=== PATIENT | female | born 1955 | race African-American/Black ===

== ENCOUNTER 2019-02-18 19:59 | Inpatient (IN) ==
[2019-02-18 20:33] LABS: Basophils % 0.5 % (0.0-0.8); Eosinophils % 0.1 % (0.00-10.9); Hematocrit 44.7 VOL% (35.7-47.0); Hemoglobin 14.1 GM/DL (12.0-16.0); Immature Granulocytes % 0.4 %; Immature Granulocytes Absolute 0.03 #; Lymphocytes # 0.9 10*3/uL (1.4-4.0); Lymphocytes % 11.5 % (21.3-54.2); Mean Corpuscular HGB Conc 31.5 GM/DL (32-36); Mean Corpuscular Volume 77.5 FL (87-102); Mean Platelet Volume 10.9 FL (9.6-12.0); Monocytes % 2.6 % (1.7-12.7); Neutrophils % 84.9 % (38.7-73.9); Platelet Count 259 T/CUMM (130-400); Red Blood Count 5.77 MC/CUMM (3.8-5.5); Red Cell Distribution Width 16.6 % (9.3-17.3); White Blood Count 8.1 T/CUMM (4-12)
[2019-02-18 20:55] LABS: Alanine Aminotransferase 36 U/L (13-56); Albumin 4.5 G/DL (3.4-5.0); Alkaline Phosphatase 107 U/L (45-117); Aspartate Amino Transferase 31 U/L (0-37); Bilirubin,Total < 0.39 MG/DL (0.2-1.0); Blood Urea Nitrogen 25 MG/DL (7-18); Calcium 9.5 MG/DL (8.5-10.1); Estimated Glom Filtration Rate 55 ML/MIN; Glucose 193 MG/DL (74-106); Osmolality,Calculated 287.4 MOS/KG (273-304); Total Protein 9.2 G/DL (6.4-8.3)
[2019-02-18] MEDS ORDERED: HEPARIN 1,000 UNIT/1 ML VIAL IV STA (22:13)
[2019-02-18] MEDS ORDERED: TICAGRELOR 90 MG TABLET PO STA (22:13)
[2019-02-18] MEDS ORDERED: NITROGLYCERIN 2% OINT 1 INCH/GM PACK TOP STA (22:14)
[2019-02-18] MEDS ORDERED: NITROGLYCERIN 2% OINT 1 INCH/GM PACK TOP ONE (22:16)
[2019-02-18] MEDS ORDERED: TICAGRELOR 90 MG TABLET ONE (22:16)
[2019-02-18] MEDS ORDERED: HEPARIN 5,000 UNIT/1 ML VIAL ONE (22:17)
[2019-02-18] MEDS ORDERED: ONDANSETRON 4 MG/2 ML VIAL IV PRN (22:19)
[2019-02-18] MEDS ORDERED: MORPHINE 4 MG/1 ML VIAL IV STA ×2 (22:19→23:22)
[2019-02-18] MEDS ORDERED: ONDANSETRON 4 MG/2 ML VIAL IV STA (22:19)
[2019-02-18] MEDS ORDERED: MAGNESIUM SULF RIDER 4 GM in PREMIX 1 EACH IV PRN (22:19)
[2019-02-18] MEDS ORDERED: MAGNESIUM SULF RIDER 2 GM in PREMIX 1 EACH IV PRN (22:19)
[2019-02-18] MEDS ORDERED: NITROGLYCERIN DRIP 50 MG/250 ML BOTTLE IV SCH (22:30)
[2019-02-18] MEDS ORDERED: NITROGLYCERIN DRIP 50 MG/250 ML BOTTLE IV PRN (23:20)
[2019-02-18] MEDS: HEPARIN DRIP 25,000 UNITS/500 ML PREMIX IV SCH (23:40)
[2019-02-18] MEDS: DEXTROSE 5% NACL 0.9% 1,000 ML IV SCH (23:46)
[2019-02-19] MEDS ORDERED: HEPARIN 5,000 UNIT/1 ML VIAL IV ONE ×2 (03:22→22:23)
[2019-02-19] MEDS: MORPHINE 4 MG/1 ML VIAL IV PRN ×2 (06:00→13:06)
[2019-02-19] MEDS: NITROGLYCERIN DRIP 50 MG/250 ML BOTTLE IV PRN ×3 (06:08→16:36)
[2019-02-19] MEDS: carvediloL 3.125 MG TABLET PO SCH ×4 (08:48→23:36)
[2019-02-19] MEDS: DEXTROSE 5% NACL 0.9% 1,000 ML IV SCH (08:49)
[2019-02-19 10:27] LABS: Barbiturates Screen,Urine Negative (Negative); Benzodiazepines Screen,Urine Negative (Negative); Cannabinoid Screen,Urine Negative (Negative); Opiate Screen,Urine Positive (Negative); Phencyclidine Screen,Urine Negative (Negative)
[2019-02-19 10:48] LABS: Albumin 3.6 G/DL (3.4-5.0); Bilirubin,Total 0.4 MG/DL (0.2-1.0); Calcium 9.5 MG/DL (8.5-10.1); Osmolality,Calculated 285.4 MOS/KG (273-304); Risk Ratio 4.05; Total Protein 7.9 G/DL (6.4-8.3); VLDL CHOLESTEROL 11.2 MG/DL
[2019-02-19] MEDS ORDERED: POTASSIUM CHLORIDE 20 MEQ TABLET PO ONE (11:57)
[2019-02-19] MEDS ORDERED: POTASSIUM CHLORIDE RIDER 10 MEQ in PREMIX 1 EACH IV PRN ×2 (12:00→14:04)
[2019-02-19] MEDS ORDERED: GLUCAGON 1 MG VIAL IM PRN (12:39)
[2019-02-19] MEDS ORDERED: DEXTROSE 10% 250 ML BAG IV PRN (12:39)
[2019-02-19] MEDS ORDERED: DIAZEPAM 5 MG TABLET PO ONE (14:04)
[2019-02-19] MEDS ORDERED: MAGNESIUM SULF RIDER 2 GM in PREMIX 1 EACH IV PRN (14:04)
[2019-02-19] MEDS ORDERED: diphenhydrAMINE CAP 25 MG CAPSULE PO ONE (14:04)
[2019-02-19] MEDS: ASPIRIN CHEW 81 MG TABLET PO SCH (15:15)
[2019-02-19] MEDS: PANTOPRAZOLE 40 MG TABLET PO SCH (15:15)
[2019-02-19] MEDS: INSULIN LISPRO 100 UNIT/ML SUBCUT SCH ×2 (15:34→21:07)
[2019-02-19] MEDS ORDERED: ROSUVASTATIN 10 MG TABLET PO SCH (21:00)
[2019-02-20] MEDS: HEPARIN DRIP 25,000 UNITS/500 ML PREMIX IV SCH (00:50)
[2019-02-20 02:28] LABS: Basophils % 0.4 % (0.0-0.8); Hematocrit 35.5 VOL% (35.7-47.0); Hemoglobin 11.3 GM/DL (12.0-16.0); Immature Granulocytes % 0.1 %; Immature Granulocytes Absolute 0.01 #; Lymphocytes # 1.3 10*3/uL (1.4-4.0); Lymphocytes % 15.9 % (21.3-54.2); Mean Corpuscular HGB Conc 31.8 GM/DL (32-36); Mean Corpuscular Volume 76.2 FL (87-102); Mean Platelet Volume 11.5 FL (9.6-12.0); Monocytes % 12.1 % (1.7-12.7); Neutrophils % 71.5 % (38.7-73.9); Platelet Count 245 T/CUMM (130-400); Red Blood Count 4.66 MC/CUMM (3.8-5.5); Red Cell Distribution Width 15.8 % (9.3-17.3); White Blood Count 8.2 T/CUMM (4-12)
[2019-02-20 02:55] LABS: Albumin 3.2 G/DL (3.4-5.0); Bilirubin,Total 0.6 MG/DL (0.2-1.0); Calcium 9.1 MG/DL (8.5-10.1); Osmolality,Calculated 281.3 MOS/KG (273-304); Total Protein 7.3 G/DL (6.4-8.3)
[2019-02-20 03:09] LABS: CKMB % 3.7 %
[2019-02-20 03:11] LABS: Troponin I 97.6 NG/ML (0.00-0.045)
[2019-02-20] MEDS: carvediloL 3.125 MG TABLET PO SCH ×3 (06:10→17:25)
[2019-02-20] MEDS: SODIUM CHLORIDE 0.9% 1,000 ML IV SCH ×2 (08:30→17:28)
[2019-02-20] MEDS: INSULIN LISPRO 100 UNIT/ML SUBCUT SCH ×4 (08:35→22:02)
[2019-02-20] MEDS ORDERED: diphenhydrAMINE CAP 25 MG CAPSULE PO ONE ×2 (08:44→14:00)
[2019-02-20] MEDS: ASPIRIN CHEW 81 MG TABLET PO SCH (09:28)
[2019-02-20] MEDS: FAMOTIDINE 20 MG/2 ML VIAL IV SCH ×2 (09:29→22:08)
[2019-02-20] MEDS: PANTOPRAZOLE 40 MG TABLET PO SCH (09:29)
[2019-02-20] MEDS: methylPREDNISolone SOD SUC 125 MG/2 ML VIAL IV SCH ×3 (09:30→22:06)
[2019-02-20] MEDS ORDERED: FAMOTIDINE 20 MG/2 ML VIAL IV ONE (13:44)
[2019-02-20] MEDS ORDERED: LIDOCAINE 1% 20 ML VIAL ONE (13:55)
[2019-02-20] MEDS ORDERED: DIAZEPAM 5 MG TABLET PO ONE (14:00)
[2019-02-20] MEDS ORDERED: fentaNYL 100 MCG/2 ML VIAL ONE (14:05)
[2019-02-20] MEDS ORDERED: MIDAZOLAM 2 MG/2 ML VIAL ONE (14:05)
[2019-02-20] MEDS ORDERED: ENOXAPARIN 30 MG/0.3 ML SYRINGE SUBCUT SCH (21:00)
[2019-02-20] MEDS: ROSUVASTATIN 20 MG TABLET PO SCH (22:03)
[2019-02-20] MEDS: FAMOTIDINE 20 MG TABLET PO SCH (22:14)
[2019-02-21] MEDS: carvediloL 3.125 MG TABLET PO SCH ×4 (00:15→17:07)
[2019-02-21] MEDS: methylPREDNISolone SOD SUC 125 MG/2 ML VIAL IV SCH ×2 (04:10→08:35)
[2019-02-21 04:45] LABS: Basophils % 0.1 % (0.0-0.8); Hematocrit 38.8 VOL% (35.7-47.0); Hemoglobin 11.7 GM/DL (12.0-16.0); Immature Granulocytes % 0.5 %; Immature Granulocytes Absolute 0.04 #; Lymphocytes # 0.7 10*3/uL (1.4-4.0); Lymphocytes % 8.8 % (21.3-54.2); Mean Corpuscular HGB Conc 30.2 GM/DL (32-36); Mean Corpuscular Volume 78.9 FL (87-102); Monocytes % 2.5 % (1.7-12.7); Neutrophils % 88.1 % (38.7-73.9); Platelet Count 221 T/CUMM (130-400); Red Blood Count 4.92 MC/CUMM (3.8-5.5); Red Cell Distribution Width 16.4 % (9.3-17.3); White Blood Count 8.4 T/CUMM (4-12)
[2019-02-21 05:18] LABS: Calcium 9.4 MG/DL (8.5-10.1); Osmolality,Calculated 292.7 MOS/KG (273-304)
[2019-02-21] MEDS: ASPIRIN CHEW 81 MG TABLET PO SCH (08:35)
[2019-02-21] MEDS: PANTOPRAZOLE 40 MG TABLET PO SCH (08:35)
[2019-02-21] MEDS: FAMOTIDINE 20 MG TABLET PO SCH ×2 (08:35→09:07)
[2019-02-21] MEDS: ENOXAPARIN 80 MG/0.8 ML SYRINGE SUBCUT SCH ×2 (08:35→21:49)
[2019-02-21] MEDS: NITROGLYCERIN 2% OINT 1 INCH/GM PACK TOP SCH ×3 (08:36→17:14)
[2019-02-21] MEDS: INSULIN LISPRO 100 UNIT/ML SUBCUT SCH ×4 (09:14→21:51)
[2019-02-21] MEDS: FAMOTIDINE 20 MG/2 ML VIAL IV SCH (09:14)
[2019-02-21] MEDS: ASCORBIC ACID 500 MG TABLET PO SCH ×2 (13:52→21:50)
[2019-02-21] MEDS: ROSUVASTATIN 20 MG TABLET PO SCH (21:50)
[2019-02-22] MEDS: carvediloL 3.125 MG TABLET PO SCH ×4 (02:20→22:43)
[2019-02-22] MEDS: NITROGLYCERIN 2% OINT 1 INCH/GM PACK TOP SCH ×5 (02:20→23:21)
[2019-02-22 05:03] LABS: Basophils % 0.2 % (0.0-0.8); Hematocrit 34.8 VOL% (35.7-47.0); Hemoglobin 10.8 GM/DL (12.0-16.0); Immature Granulocytes % 0.4 %; Immature Granulocytes Absolute 0.05 #; Lymphocytes # 0.9 10*3/uL (1.4-4.0); Mean Corpuscular Volume 77.7 FL (87-102); Mean Platelet Volume 12.3 FL (9.6-12.0); Monocytes % 6.2 % (1.7-12.7); Neutrophils % 86.2 % (38.7-73.9); Platelet Count 208 T/CUMM (130-400); Red Blood Count 4.48 MC/CUMM (3.8-5.5); White Blood Count 12.1 T/CUMM (4-12)
[2019-02-22 05:19] LABS: Calcium 8.8 MG/DL (8.5-10.1); Osmolality,Calculated 296.1 MOS/KG (273-304)
[2019-02-22] MEDS: SODIUM CHLORIDE 0.9% 1,000 ML IV SCH (07:27)
[2019-02-22] MEDS: ENOXAPARIN 80 MG/0.8 ML SYRINGE SUBCUT SCH (09:34)
[2019-02-22] MEDS: INSULIN LISPRO 100 UNIT/ML SUBCUT SCH ×4 (09:34→23:20)
[2019-02-22] MEDS: ASPIRIN CHEW 81 MG TABLET PO SCH (09:36)
[2019-02-22] MEDS: PANTOPRAZOLE 40 MG TABLET PO SCH (09:37)
[2019-02-22] MEDS: ASCORBIC ACID 500 MG TABLET PO SCH ×2 (09:37→22:43)
[2019-02-22] MEDS: CHLORHEXIDINE 4% SOLN 118 ML BOTTLE TOP SCH ×3 (09:38→22:44)
[2019-02-22] MEDS: CHLORHEXIDINE 0.12% ORAL RINSE 60 ML BOTTLE SWISH/SPIT SCH ×2 (09:38→22:47)
[2019-02-22] MEDS: ROSUVASTATIN 20 MG TABLET PO SCH (22:43)
[2019-02-23] MEDS ORDERED: PAPAVERINE 60 MG/2 ML VIAL ONE (04:22)
[2019-02-23] MEDS ORDERED: TISSUE ADHESIVE 1 EACH APPLICATOR TOP ONE (04:22)
[2019-02-23] MEDS ORDERED: VANCOMYCIN 500 MG VIAL ONE (04:23)
[2019-02-23] MEDS ORDERED: VANCOMYCIN 1,000 MG VIAL ONE (04:23)
[2019-02-23 04:52] LABS: Eosinophils % 0.1 % (0.00-10.9); Hematocrit 33.1 VOL% (35.7-47.0); Hemoglobin 10.3 GM/DL (12.0-16.0); Immature Granulocytes % 0.3 %; Immature Granulocytes Absolute 0.02 #; Lymphocytes # 1.6 10*3/uL (1.4-4.0); Lymphocytes % 20.3 % (21.3-54.2); Mean Corpuscular HGB Conc 31.1 GM/DL (32-36); Mean Corpuscular Volume 77.2 FL (87-102); Mean Platelet Volume 11.7 FL (9.6-12.0); Neutrophils % 69.3 % (38.7-73.9); Platelet Count 209 T/CUMM (130-400); Red Blood Count 4.29 MC/CUMM (3.8-5.5); Red Cell Distribution Width 16.2 % (9.3-17.3); White Blood Count 7.9 T/CUMM (4-12)
[2019-02-23 05:08] LABS: Calcium 8.7 MG/DL (8.5-10.1); Osmolality,Calculated 301.7 MOS/KG (273-304)
[2019-02-23] MEDS: NITROGLYCERIN 2% OINT 1 INCH/GM PACK TOP SCH (05:32)
[2019-02-23] MEDS: carvediloL 3.125 MG TABLET PO SCH ×2 (05:44→10:00)
[2019-02-23] MEDS ORDERED: CEFUROXIME INJ 1,500 MG in SYRINGE 1 EACH IV ONE (06:56)
[2019-02-23 08:21] LABS: ABG Base Excess -0.4 MMOL/L (-2.5-2.5); ABG HCO3 24.2 MMOL/L (20-26); ABG Oxygen Saturation 99.4 % (95-100); ABG PCO2 34.8 MM HG (35-48); ABG PH 7.436 (7.35-7.45); ABG TCO2 21.2 MMOL/L (23-27); Glucose Heart Surgery 102 MG/DL (74-106); Hematocrit Heart Surgery 31.4 PERCENT (37-47); Hemoglobin Heart Surgery 10.2 G/DL (12.0-16.0); Ionized Calcium Arterial 1.15 MMOL/L (1.21-1.46); PCO2 Patient Temp Arterial 34.8 MMHG; PH Patient Temp Arterial 7.436; Patient Temperature 37 CELCIUS; Potassium Heart/CVR 3.4 MMOL/L (3.5-5.1); Sodium Heart/CVR 142 MMOL/L (135-145)
[2019-02-23 08:51] LABS: Apearance,Urine CLEAR (Clear); Bilirubin,Urine Negative (Negative); Blood, Urine Negative (Negative); Glucose,Urine (UA) Negative (Negative); Ketones,Urine Negative (Negative); Nitrite,Urine Negative (Negative); Protein,Urine Negative; RBC,Urine <1 /HPF (0-4); Squamous Epithelial Cell,Urine Occasional /HPF (0-10); Urine Color Straw (Yellow); Urine Specific Gravity 1.008 (1.001-1.035); Urine Urobilinogen < 2.0 EU/DL (0.2-1.0); WBC,Urine <1 /HPF (0-6)
[2019-02-23 09:39] LABS: Hemoglobin Heart Surgery 7.8 G/DL (12.0-16.0); PH Patient Temp Venous 7.541; Potassium Heart/CVR 3.5 MMOL/L (3.5-5.1); VBG Base Excess 0.3 MEQ/L (0-4); VBG Oxygen Saturation 83.8 %; VBG PCO2 29.5 MMHG (41-51); VBG PH 7.51
[2019-02-23] MEDS ORDERED: ALBUMIN 5% 12.5 GM/250 ML VIAL IV ONE ×2 (09:47)
[2019-02-23] MEDS ORDERED: NITROPRUSSIDE 50 MG/2 ML VIAL ONE (09:47)
[2019-02-23] MEDS ORDERED: SODIUM BICARBONATE 50 MEQ/50 ML VIAL IV ONE ×2 (09:47→10:36)
[2019-02-23] MEDS ORDERED: POTASSIUM CHLORIDE RIDER 100 ML IV ONE (09:47)
[2019-02-23] MEDS ORDERED: CALCIUM CHLORIDE 1,000 MG/10 ML SYRINGE IV ONE (09:47)
[2019-02-23] MEDS ORDERED: PHENYLEPHRINE DRIP 40 MG/250 ML PREMIX IV ONE (09:47)
[2019-02-23] MEDS: ASPIRIN CHEW 81 MG TABLET PO SCH (10:00)
[2019-02-23] MEDS: CHLORHEXIDINE 0.12% ORAL RINSE 60 ML BOTTLE SWISH/SPIT SCH ×2 (10:00→22:03)
[2019-02-23] MEDS: PANTOPRAZOLE 40 MG TABLET PO SCH (10:00)
[2019-02-23] MEDS: INSULIN LISPRO 100 UNIT/ML SUBCUT SCH ×2 (10:00→14:19)
[2019-02-23] MEDS: ASCORBIC ACID 500 MG TABLET PO SCH (10:00)
[2019-02-23] MEDS: SODIUM CHLORIDE 0.9% 1,000 ML IV SCH (10:00)
[2019-02-23 10:11] LABS: Hematocrit Heart Surgery 22.5 PERCENT (37-47); Hemoglobin Heart Surgery 7.2 G/DL (12.0-16.0); PCO2 Patient Temp Venous 31.4 MM HG; PH Patient Temp Venous 7.484; PO2 Patient Temp Venous 42.4 MM HG; VBG Base Excess 0.6 MEQ/L (0-4); VBG HCO3 24.8 MEQ/L (24-28); VBG Oxygen Saturation 87.5 %; VBG PCO2 36.3 MMHG (41-51); VBG PH 7.439; VBG PO2 51.9 MMHG (17-40)
[2019-02-23] MEDS ORDERED: THROMBIN TOPICAL (RECOMBINANT) 5,000 UNIT VIAL TOP ONE (10:25)
[2019-02-23] MEDS ORDERED: DEXTROSE 5% KCL 20 MEQ 20 MEQ/1,000 ML BAG IV ONE (10:36)
[2019-02-23] MEDS ORDERED: ALBUMIN 25% 25 GM/100 ML VIAL IV ONE (10:36)
[2019-02-23] MEDS ORDERED: LIDOCAINE 2% 5 ML VIAL ONE ×2 (10:36→12:14)
[2019-02-23] MEDS ORDERED: MANNITOL 100 GM/500 ML BAG IV ONE (10:36)
[2019-02-23] MEDS ORDERED: MAGNESIUM SULFATE 5 GM/10 ML VIAL IV ONE (10:36)
[2019-02-23] MEDS ORDERED: PROTAMINE SULFATE 250 MG/25 ML VIAL IV ONE (10:36)
[2019-02-23] MEDS ORDERED: methylPREDNISolone SOD SUC 1,000 MG/8 ML VIAL ONE (10:36)
[2019-02-23] MEDS ORDERED: FUROSEMIDE 20 MG/2 ML VIAL ONE (10:37)
[2019-02-23] MEDS ORDERED: PROTAMINE SULFATE 50 MG/5 ML VIAL IV ONE (10:37)
[2019-02-23] MEDS ORDERED: HEPARIN 10,000 UNIT/10 ML VIAL ONE (10:37)
[2019-02-23 10:43] LABS: ABG Base Excess -0.3 MMOL/L (-2.5-2.5); ABG HCO3 24.2 MMOL/L (20-26); ABG Oxygen Saturation 98.3 % (95-100); ABG PH 7.462 (7.35-7.45); ABG TCO2 20.6 MMOL/L (23-27); Glucose Heart Surgery 247 MG/DL (74-106); Hematocrit Heart Surgery 32.7 PERCENT (37-47); Hemoglobin Heart Surgery 10.6 G/DL (12.0-16.0); Ionized Calcium Arterial 1.82 MMOL/L (1.21-1.46); PH Patient Temp Arterial 7.462; Patient Temperature 37 CELCIUS; Potassium Heart/CVR 3.4 MMOL/L (3.5-5.1); Sodium Heart/CVR 136 MMOL/L (135-145)
[2019-02-23] MEDS ORDERED: CHLORHEXIDINE 4% SOLN 118 ML BOTTLE TOP PRN (11:38)
[2019-02-23] MEDS ORDERED: ALBUMIN 5% 12.5 GM in PREMIX 1 EACH IV PRN (11:38)
[2019-02-23] MEDS ORDERED: MORPHINE 10 MG/1 ML VIAL IV PRN (11:38)
[2019-02-23] MEDS ORDERED: MIDAZOLAM 2 MG/2 ML VIAL IV PRN (11:38)
[2019-02-23] MEDS ORDERED: INSULIN REGULAR 100 UNIT/ML IV PRN (11:38)
[2019-02-23] MEDS ORDERED: MAGNESIUM SULF RIDER 4 GM in PREMIX 1 EACH IV PRN (11:38)
[2019-02-23] MEDS ORDERED: ONDANSETRON 4 MG/2 ML VIAL IV PRN (11:38)
[2019-02-23] MEDS ORDERED: MAGNESIUM SULF RIDER 2 GM in PREMIX 1 EACH IV PRN (11:38)
[2019-02-23] MEDS ORDERED: DEXTROSE 10% 250 ML BAG IV PRN ×2 (11:38)
[2019-02-23] MEDS ORDERED: POTASSIUM CHLORIDE RIDER 10 MEQ in PREMIX 1 EACH IV PRN (11:38)
[2019-02-23] MEDS ORDERED: CALCIUM CHLORIDE 1,000 MG/10 ML SYRINGE IV PRN (11:38)
[2019-02-23] MEDS ORDERED: ACETAMINOPHEN 650 MG SUPP RECTAL PRN (11:38)
[2019-02-23] MEDS: SODIUM CHLORIDE 0.45% 1,000 ML IV SCH ×2 (11:50)
[2019-02-23] MEDS ORDERED: HEPARIN/NACL 0.9% 2 UNITS/ML 500 ML IV ONE (12:14)
[2019-02-23] MEDS ORDERED: CALCIUM CHLORIDE 1,000 MG/10 ML VIAL IV ONE (12:14)
[2019-02-23] MEDS ORDERED: SUFentanil 250 MCG/5 ML AMP ONE (12:14)
[2019-02-23] MEDS ORDERED: PHENYLEPHRINE DRIP 20 MG/250 ML PREMIX IV ONE (12:14)
[2019-02-23] MEDS ORDERED: EPINEPHrine 1 MG/ML VIAL ONE (12:14)
[2019-02-23] MEDS ORDERED: MIDAZOLAM 10 MG/2 ML VIAL ONE (12:15)
[2019-02-23] MEDS ORDERED: VECURONIUM 10 MG VIAL IV ONE (12:15)
[2019-02-23] MEDS ORDERED: ePHEDrine 50 MG/ML AMP ONE (12:15)
[2019-02-23] MEDS ORDERED: PHENYLEPHRINE 1 MG/10 ML SYRINGE IV ONE (12:16)
[2019-02-23] MEDS ORDERED: ETOMIDATE 40 MG/20 ML VIAL IV ONE (12:16)
[2019-02-23] MEDS ORDERED: LACTATED RINGERS 1,000 ML IV ONE (12:16)
[2019-02-23] MEDS ORDERED: AMINOCAPROIC ACID 5,000 MG/20 ML VIAL ONE (12:16)
[2019-02-23] MEDS ORDERED: SEVOFLURANE 1 UNIT/15 MINUTE INH ONE (12:16)
[2019-02-23] MEDS ORDERED: SODIUM CHLORIDE 0.9% 1,000 ML IV ONE (12:16)
[2019-02-23] MEDS ORDERED: SODIUM CHLORIDE 0.9% 500 ML IV ONE (12:16)
[2019-02-23] MEDS ORDERED: METOPROLOL TARTRATE 5 MG/5 ML VIAL IV ONE (12:16)
[2019-02-23 12:33] LABS: Basophils % 0.1 % (0.0-0.8); Eosinophils # 0.1 10*3/uL (0.0-0.87); Eosinophils % 0.6 % (0.00-10.9); Hematocrit 30.3 VOL% (35.7-47.0); Hemoglobin 9.5 GM/DL (12.0-16.0); Immature Granulocytes % 0.5 %; Immature Granulocytes Absolute 0.04 #; Lymphocytes # 1.1 10*3/uL (1.4-4.0); Lymphocytes % 13.1 % (21.3-54.2); Mean Corpuscular HGB Conc 31.4 GM/DL (32-36); Mean Corpuscular Volume 77.7 FL (87-102); Mean Platelet Volume 11.9 FL (9.6-12.0); Neutrophils % 79.7 % (38.7-73.9); Platelet Count 163 T/CUMM (130-400); Red Cell Distribution Width 16.1 % (9.3-17.3); White Blood Count 8.7 T/CUMM (4-12)
[2019-02-23 12:36] LABS: ABG Base Excess -1.3 MMOL/L (-2.5-2.5); ABG HCO3 23.2 MMOL/L (20-26); ABG Oxygen Saturation 91.9 % (95-100); ABG PCO2 28.5 MM HG (35-48); ABG PH 7.472 (7.35-7.45); ABG PO2 61.8 MM HG (80-95); ABG TCO2 17.5 MMOL/L (23-27); Glucose Heart Surgery 234 MG/DL (74-106); Hematocrit Heart Surgery 47.6 PERCENT (37-47); Hemoglobin Heart Surgery 15.5 G/DL (12.0-16.0); Potassium Heart/CVR 3.4 MMOL/L (3.5-5.1)
[2019-02-23 12:43] LABS: INR 1.2; PT Patient Result 12.8 SECS (9.6-12.2); Partial Thromboplastin Time 25.3 SECS (20.8-36.0)
[2019-02-23] MEDS: POTASSIUM CHLORIDE RIDER 20 MEQ in PREMIX 1 EACH IV PRN ×2 (12:53→16:25)
[2019-02-23] MEDS: SODIUM CHLORIDE 0.9% 250 ML IV PRN ×2 (14:00→14:16)
[2019-02-23] MEDS: INSULIN REGULAR DRIP 100 ML IV SCH (14:20)
[2019-02-23] MEDS ORDERED: DOBUTamine 500 MG/250 ML PREMIX IV PRN (16:08)
[2019-02-23] MEDS ORDERED: LACTATED RINGERS 500 ML IV ONE (16:13)
[2019-02-23] MEDS ORDERED: ASPIRIN 325 MG TABLET PO ONE (17:28)
[2019-02-23] MEDS ORDERED: CEFUROXIME INJ 1,500 MG in SYRINGE 1 EACH IV SCH (19:19)
[2019-02-23] MEDS: CEFUROXIME INJ 1,500 MG in SYRINGE 1 EACH IV SCH (20:21)
[2019-02-24 00:02] LABS: ABG Base Excess -0.6 MMOL/L (-2.5-2.5); ABG PCO2 34.9 MM HG (35-48); ABG PH 7.432 (7.35-7.45); ABG TCO2 21.1 MMOL/L (23-27); Glucose Heart Surgery 130 MG/DL (74-106); Hematocrit Heart Surgery 30.8 PERCENT (37-47); Potassium Heart/CVR 3.6 MMOL/L (3.5-5.1)
[2019-02-24] MEDS: SODIUM CHLORIDE 0.45% 1,000 ML IV SCH ×4 (00:53→15:05)
[2019-02-24] MEDS: MORPHINE 4 MG/1 ML VIAL IV PRN ×3 (00:59→19:12)
[2019-02-24] MEDS: POTASSIUM CHLORIDE RIDER 20 MEQ in PREMIX 1 EACH IV PRN (01:24)
[2019-02-24 04:08] LABS: Hematocrit 30.4 VOL% (35.7-47.0); Hemoglobin 9.5 GM/DL (12.0-16.0); Immature Granulocytes % 0.4 %; Immature Granulocytes Absolute 0.03 #; Lymphocytes # 0.5 10*3/uL (1.4-4.0); Lymphocytes % 6.2 % (21.3-54.2); Mean Corpuscular HGB Conc 31.3 GM/DL (32-36); Mean Corpuscular Volume 76.8 FL (87-102); Mean Platelet Volume 12.3 FL (9.6-12.0); Neutrophils % 89.4 % (38.7-73.9); Platelet Count 195 T/CUMM (130-400); Red Blood Count 3.96 MC/CUMM (3.8-5.5); Red Cell Distribution Width 16.2 % (9.3-17.3); White Blood Count 8.6 T/CUMM (4-12)
[2019-02-24 04:44] LABS: Calcium 8.1 MG/DL (8.5-10.1); Osmolality,Calculated 293.7 MOS/KG (273-304)
[2019-02-24] MEDS: INSULIN REGULAR 100 UNIT/ML SUBCUT SCH ×4 (07:34→20:04)
[2019-02-24] MEDS: ASPIRIN EC 325 MG TABLET PO SCH (08:47)
[2019-02-24] MEDS: FUROSEMIDE 40 MG TABLET PO SCH (08:47)
[2019-02-24] MEDS: CHLORHEXIDINE 0.12% ORAL RINSE 60 ML BOTTLE SWISH/SPIT SCH ×2 (08:48→21:12)
[2019-02-24] MEDS: PANTOPRAZOLE 40 MG VIAL IV SCH (08:48)
[2019-02-24] MEDS: CEFUROXIME INJ 1,500 MG in SYRINGE 1 EACH IV SCH ×2 (08:54→20:15)
[2019-02-24] MEDS ORDERED: CLOPIDOGREL 75 MG TABLET PO SCH (09:05)
[2019-02-24] MEDS: METOPROLOL TARTRATE 25 MG TABLET PO SCH ×2 (10:29→21:12)
[2019-02-24] MEDS: CLOPIDOGREL 75 MG TABLET PO SCH (10:36)
[2019-02-24] MEDS: INSULIN REGULAR DRIP 100 ML IV SCH (13:02)
[2019-02-24] MEDS: ATORVASTATIN 40 MG TABLET PO SCH (21:12)
[2019-02-25] MEDS: INSULIN REGULAR 100 UNIT/ML SUBCUT SCH ×6 (00:02→21:23)
[2019-02-25] MEDS: MORPHINE 4 MG/1 ML VIAL IV PRN ×4 (00:19→18:15)
[2019-02-25 04:57] LABS: Basophils % 0.1 % (0.0-0.8); Hematocrit 30.1 VOL% (35.7-47.0); Hemoglobin 9.2 GM/DL (12.0-16.0); Immature Granulocytes % 0.6 %; Immature Granulocytes Absolute 0.06 #; Lymphocytes # 1.2 10*3/uL (1.4-4.0); Lymphocytes % 10.8 % (21.3-54.2); Mean Corpuscular HGB Conc 30.6 GM/DL (32-36); Mean Corpuscular Volume 79.4 FL (87-102); Mean Platelet Volume 11.7 FL (9.6-12.0); Monocytes % 9.7 % (1.7-12.7); Neutrophils % 78.8 % (38.7-73.9); Platelet Count 188 T/CUMM (130-400); Red Blood Count 3.79 MC/CUMM (3.8-5.5); Red Cell Distribution Width 16.5 % (9.3-17.3); White Blood Count 10.9 T/CUMM (4-12)
[2019-02-25 05:26] LABS: Calcium 8.6 MG/DL (8.5-10.1); Osmolality,Calculated 303.4 MOS/KG (273-304)
[2019-02-25] MEDS: POTASSIUM CHLORIDE RIDER 20 MEQ in PREMIX 1 EACH IV PRN (06:31)
[2019-02-25] MEDS: METOPROLOL TARTRATE 25 MG TABLET PO SCH ×2 (08:11→21:24)
[2019-02-25] MEDS: ASPIRIN EC 325 MG TABLET PO SCH (08:51)
[2019-02-25] MEDS: FUROSEMIDE 40 MG TABLET PO SCH (08:52)
[2019-02-25] MEDS: CHLORHEXIDINE 0.12% ORAL RINSE 60 ML BOTTLE SWISH/SPIT SCH ×2 (08:52→21:25)
[2019-02-25] MEDS: PANTOPRAZOLE 40 MG VIAL IV SCH (08:52)
[2019-02-25] MEDS: CLOPIDOGREL 75 MG TABLET PO SCH (08:52)
[2019-02-25] MEDS ORDERED: CLOPIDOGREL 75 MG TABLET PO SCH (09:03)
[2019-02-25] MEDS: ATORVASTATIN 40 MG TABLET PO SCH (21:24)
[2019-02-26] MEDS: INSULIN REGULAR 100 UNIT/ML SUBCUT SCH ×6 (01:34→21:28)
[2019-02-26] MEDS: MORPHINE 4 MG/1 ML VIAL IV PRN ×2 (04:17→18:59)
[2019-02-26 04:56] LABS: Eosinophils # 0.1 10*3/uL (0.0-0.87); Eosinophils % 0.8 % (0.00-10.9); Hematocrit 30.3 VOL% (35.7-47.0); Hemoglobin 9.3 GM/DL (12.0-16.0); Immature Granulocytes % 0.3 %; Immature Granulocytes Absolute 0.03 #; Lymphocytes # 2.1 10*3/uL (1.4-4.0); Lymphocytes % 23.5 % (21.3-54.2); Mean Corpuscular HGB Conc 30.7 GM/DL (32-36); Mean Corpuscular Volume 78.5 FL (87-102); Mean Platelet Volume 12.3 FL (9.6-12.0); Neutrophils % 62.4 % (38.7-73.9); Platelet Count 224 T/CUMM (130-400); Red Blood Count 3.86 MC/CUMM (3.8-5.5); Red Cell Distribution Width 16.2 % (9.3-17.3); White Blood Count 9.1 T/CUMM (4-12)
[2019-02-26 05:24] LABS: Osmolality,Calculated 301.4 MOS/KG (273-304)
[2019-02-26] MEDS: CLOPIDOGREL 75 MG TABLET PO SCH (08:59)
[2019-02-26] MEDS: ASPIRIN EC 325 MG TABLET PO SCH (08:59)
[2019-02-26] MEDS: METOPROLOL TARTRATE 25 MG TABLET PO SCH ×2 (09:00→21:20)
[2019-02-26] MEDS ORDERED: MAGNESIUM HYDROXIDE SUSP 30 ML UDCUP PO ONE (09:00)
[2019-02-26] MEDS: FUROSEMIDE 40 MG TABLET PO SCH (09:00)
[2019-02-26] MEDS: PANTOPRAZOLE 40 MG VIAL IV SCH (09:01)
[2019-02-26] MEDS: CHLORHEXIDINE 0.12% ORAL RINSE 60 ML BOTTLE SWISH/SPIT SCH ×2 (09:01→21:23)
[2019-02-26] MEDS ORDERED: POTASSIUM CHLORIDE 20 MEQ TABLET PO ONE (12:27)
[2019-02-26] MEDS: ASCORBIC ACID 500 MG TABLET PO SCH ×2 (13:25→21:21)
[2019-02-26] MEDS: ATORVASTATIN 40 MG TABLET PO SCH (21:21)
[2019-02-27] MEDS: INSULIN REGULAR 100 UNIT/ML SUBCUT SCH ×6 (01:02→20:48)
[2019-02-27] MEDS: MORPHINE 4 MG/1 ML VIAL IV PRN ×2 (03:09→18:04)
[2019-02-27 05:33] LABS: Eosinophils # 0.2 10*3/uL (0.0-0.87); Eosinophils % 2.8 % (0.00-10.9); Hematocrit 28.5 VOL% (35.7-47.0); Hemoglobin 8.8 GM/DL (12.0-16.0); Immature Granulocytes % 0.4 %; Immature Granulocytes Absolute 0.03 #; Lymphocytes # 1.9 10*3/uL (1.4-4.0); Lymphocytes % 27.4 % (21.3-54.2); Mean Corpuscular HGB Conc 30.9 GM/DL (32-36); Mean Corpuscular Volume 79.4 FL (87-102); Mean Platelet Volume 11.9 FL (9.6-12.0); Neutrophils % 55.4 % (38.7-73.9); Platelet Count 219 T/CUMM (130-400); Red Blood Count 3.59 MC/CUMM (3.8-5.5); Red Cell Distribution Width 16.5 % (9.3-17.3); White Blood Count 6.8 T/CUMM (4-12)
[2019-02-27 06:05] LABS: Calcium 8.4 MG/DL (8.5-10.1); Osmolality,Calculated 305.9 MOS/KG (273-304)
[2019-02-27] MEDS: ASPIRIN EC 325 MG TABLET PO SCH (08:58)
[2019-02-27] MEDS: FUROSEMIDE 40 MG TABLET PO SCH (08:59)
[2019-02-27] MEDS: METOPROLOL TARTRATE 25 MG TABLET PO SCH (09:00)
[2019-02-27] MEDS: CLOPIDOGREL 75 MG TABLET PO SCH (09:01)
[2019-02-27] MEDS: ASCORBIC ACID 500 MG TABLET PO SCH ×2 (09:02→20:25)
[2019-02-27] MEDS: CHLORHEXIDINE 0.12% ORAL RINSE 60 ML BOTTLE SWISH/SPIT SCH ×2 (09:06→20:38)
[2019-02-27] MEDS: PANTOPRAZOLE 40 MG VIAL IV SCH (10:03)
[2019-02-27] MEDS: carvediloL 3.125 MG TABLET PO SCH (20:25)
[2019-02-27] MEDS: ATORVASTATIN 40 MG TABLET PO SCH (20:25)
[2019-02-28] MEDS: MORPHINE 4 MG/1 ML VIAL IV PRN (02:06)
[2019-02-28 05:46] LABS: Eosinophils # 0.2 10*3/uL (0.0-0.87); Eosinophils % 3.8 % (0.00-10.9); Hematocrit 28.1 VOL% (35.7-47.0); Hemoglobin 8.5 GM/DL (12.0-16.0); Immature Granulocytes % 0.6 %; Immature Granulocytes Absolute 0.04 #; Lymphocytes # 1.4 10*3/uL (1.4-4.0); Lymphocytes % 22.2 % (21.3-54.2); Mean Corpuscular HGB Conc 30.2 GM/DL (32-36); Mean Corpuscular Volume 79.8 FL (87-102); Mean Platelet Volume 11.5 FL (9.6-12.0); Monocytes % 12.7 % (1.7-12.7); Neutrophils % 60.7 % (38.7-73.9); Platelet Count 240 T/CUMM (130-400); Red Blood Count 3.52 MC/CUMM (3.8-5.5); Red Cell Distribution Width 16.5 % (9.3-17.3); White Blood Count 6.3 T/CUMM (4-12)
[2019-02-28 06:09] LABS: Calcium 7.8 MG/DL (8.5-10.1); Osmolality,Calculated 299.3 MOS/KG (273-304)
[2019-02-28] MEDS ORDERED: BISACODYL 5 MG TABLET PO PRN (07:36)
[2019-02-28] MEDS: PANTOPRAZOLE 40 MG VIAL IV SCH (07:58)
[2019-02-28] MEDS: INSULIN REGULAR 100 UNIT/ML SUBCUT SCH (08:02)
[2019-02-28 08:33] VITALS: BP 126/64
[2019-02-28] MEDS: CLOPIDOGREL 75 MG TABLET PO SCH (08:50)
[2019-02-28] MEDS: FUROSEMIDE 40 MG TABLET PO SCH (08:50)
[2019-02-28] MEDS: ASCORBIC ACID 500 MG TABLET PO SCH (08:50)
[2019-02-28] MEDS: ASPIRIN EC 325 MG TABLET PO SCH (08:50)
[2019-02-28] MEDS: carvediloL 3.125 MG TABLET PO SCH (08:50)
[2019-02-28] MEDS ORDERED: FERROUS SULFATE 325 MG TABLET PO SCH (09:00)
[2019-02-28] MEDS ORDERED: PANTOPRAZOLE 40 MG TABLET PO SCH (09:00)
[2019-02-28] MEDS: CHLORHEXIDINE 0.12% ORAL RINSE 60 ML BOTTLE SWISH/SPIT SCH (09:04)
[2019-02-28] MEDS ORDERED: SODIUM PHOSPHATE ENEMA 133 ML BOTTLE RECTAL ONE (09:42)
== END 2019-02-28 13:36 | disposition home health service (06) | DRG 234 ==
LOC: N.ED 19:59 → N.EDINP 22:19 → N.CC 23:54 → N.TELES 02-20 17:13 → N.CVR 02-23 09:31 → N.ICU 02-24 13:17 → N.TELES 02-25 15:10
PROVIDERS: ADMIT Internal Medicine; ATTEND Internal Medicine
PROC: CLCCHCL (ICD-10-PCS; 2019-02-20 14:45)